=== PATIENT | female | born 1960 | race Caucasian/White ===

== ENCOUNTER 2018-08-09 05:22 | Observation (INO) | payer BC ==
[2018-08-07 14:46] LABS: BASOPHILS # (AUTO) 0.1 (0.0-0.1); BASOPHILS % 0.8 % (0.0-1.0); EOSINOPHILS # (AUTO) 0.3 (0.0-0.4); EOSINOPHILS % 4.2 % (0.0-6.0); HEMATOCRIT 43.4 % (34.2-44.1); HEMOGLOBIN 14.4 g/dL (12.0-16.0); LYMPHOCYTES # (AUTO) 2.7 (1.0-3.2); LYMPHOCYTES % 43.7 % (18.0-39.1); MEAN CORPUSCULAR HEMOGLOBIN 30.2 pg (28-32); MEAN CORPUSCULAR HGB CONC 33.2 g/dL (31-35); MONOCYTES # (AUTO) 0.4 (0.2-0.8); MONOCYTES % 6.3 % (4.4-11.3); NEUTROPHILS # (AUTO) 2.8 (2.1-6.9); NEUTROPHILS % 44.8 % (38.7-80.0); PLATELET COUNT 259 x10e3/uL (140-360); RED BLOOD COUNT 4.77 x10e6/uL (3.6-5.1); RED CELL DISTRIBUTION WIDTH 13.4 % (11.7-14.4)
[2018-08-07 14:56] LABS: INR 0.82; PROTHROMBIN TIME 12.1 seconds (11.9-14.5)
[2018-08-07 14:57] LABS: PARTIAL THROMBOPLASTIN TIME 33.1 seconds (23.8-35.5)
[2018-08-07 15:01] LABS: ANION GAP 13.3 mmol/L (8-16); BLOOD UREA NITROGEN 15 mg/dL (7-26); BUN/CREATININE RATIO 23 (6-25); CALCIUM 9.2 mg/dL (8.4-10.2); CARBON DIOXIDE 23 mmol/L (22-29); CHLORIDE 106 mmol/L (98-107); CREATININE, SERUM 0.66 mg/dL (0.57-1.11); EST GLOMERULAR FILTRATION RATE > 60 ML/MIN (60-); GLUCOSE 91 mg/dL (74-118); POTASSIUM 4.3 mmol/L (3.5-5.1); SODIUM 138 mmol/L (136-145)
--- NOTE | 2018-08-07 15:16 | Diagnostic Imaging Report ---
EXAMINATION: PA and lateral views of the chest. COMPARISON: None CLINICAL HISTORY: Preadmitted for neurosurgical procedure DISCUSSION: Lungs are well-inflated. No focal airspace consolidation, pleural effusion, or pneumothorax. Age-indeterminate mild anterior compression deformity of a midthoracic vertebral body. No acute osseous abnormalities. Cardiomediastinal contour is notable for mild tortuosity of the thoracic aorta. Normal heart size. No overt pulmonary edema. IMPRESSION: No acute cardiopulmonary abnormality. Mild age-indeterminate anterior compression deformity of a midthoracic vertebral body. Point tenderness over this region of the spine would suggest relative acuity. Signed by: Dr. Wilman Milan M.D. on 08/07/2018 3:13 PM
[~2018-08-09] VITALS: Ht 152.4 cm; Wt 94.3 kg
[~2018-08-09 05:22] MED LIST: ALBUMIN; NORCO 10-325 T1 EACH; SOMA350 MG PO; XANAX2 MG
--- OUTSIDE RECORDS SUMMARY | 2018-08-09 05:24 | XMS REPORT ---
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 Allergies, Adverse Reactions, Alerts This patient has no known allergies or adverse reactions. Medications This patient has no known medications. Results Test Description Test Time Test Comments Text Results Atomic Results Result Comments CHEST 2 VIEWS 2018-08-07 15:11:00 [facility] [address] [address] Patient Name: GIAN WAYNE MR #: [id number] : 1960 Age/Sex: 58/F Req #: [id number] [facility] Physician: Ordered by: GIANCARLO CHU MD Report #: [id number] Location: OR Room/Bed: Procedure: [id number] DX/CHEST 2 VIEWS Exam Date: 08/07/18 Exam Time: 1425 REPORT STATUS: Signed EXAMINATION: PA and lateral views of the chest. COMPARISON: None CLINICAL HISTORY: Preadmitted for neurosurgical procedure DISCUSSION: Lungs are well-inflated. No focal airspace consolidation, pleural effusion, or pneumothorax. Age-indeterminate mild anterior compression deformity of a midthoracic vertebral body. No acute osseous abnormalities. Cardiomediastinal contour is notable for mild tortuosity of the thoracic aorta. Normal heart size. No overt pulmonary edema. IMPRESSION: No acute cardiopulmonary abnormality. Mild age- indeterminate anterior compression deformity of a midthoracic vertebral body. Point tenderness over this region of the spine would suggest relative acuity. Signed by: Dr. Virgilio Manning M.D. on 08/07/2018 3:13 PM Dictated By: VIRGILIO MANNING MD [id number] Transcribed By: PAULO on 08/07/18 [id number] COPY TO: GIANCARLO CHU MD
[2018-08-09] MEDS ORDERED: CEFAZOLIN SOD 2 GM/D5W 50ML 50 ML IV ONE (06:17)
[2018-08-09] MEDS ORDERED: THROMBIN FOR SOLN 5,000 UNIT VIAL ONE (06:35)
[2018-08-09] MEDS ORDERED: BUPIVACAINE 0.5%/EPI 30 ML SDV INJ ONE (06:35)
[2018-08-09] MEDS ORDERED: GELATIN SPONGE 12-7MM ONE (06:36)
[2018-08-09] MEDS ORDERED: BACITRACIN 50,000 UNIT VIAL ONE (06:37)
[2018-08-09] MEDS ORDERED: AMBIEN10 MG PO (06:39)
[2018-08-09] MEDS ORDERED: LIDOCAINE HCL (LTA) 4 ML SOLN ONE (06:58)
[2018-08-09] MEDS ORDERED: ACETAMINOPHEN 1000 MG/100 ML 100 ML IV ONE ×2 (06:58)
[2018-08-09] MEDS: LACTATED RINGER'S 1,000 ML IV SCH ×3 (09:03→23:43)
[2018-08-09] MEDS ORDERED: PROMETHAZINE HCL (IM) 25 MG/ML VIAL IM PRN (09:15)
[2018-08-09] MEDS ORDERED: ALPRAZOLAM 1 MG TAB PO PRN (09:15)
[2018-08-09] MEDS ORDERED: ZOLPIDEM TARTRATE 10 MG TAB PO PRN (09:15)
[2018-08-09] MEDS ORDERED: ZOLPIDEM TARTRATE 5 MG TAB PO PRN (09:15)
[2018-08-09] MEDS ORDERED: ACETAMINOPHEN 325 MG TAB PO PRN (09:15)
[2018-08-09] MEDS ORDERED: MAGNESIUM/ALUMINUM/SIMETHICONE 30 ML UDC PO PRN (09:15)
[2018-08-09] MEDS ORDERED: CEPACOL SORE THROAT LOZENGES PO PRN (09:15)
[2018-08-09] MEDS ORDERED: MIDAZOLAM HCL 2 MG/2 ML VIAL ONE ×2 (09:20→18:03)
[2018-08-09] MEDS ORDERED: FENTANYL CITRATE/PF 100MCG/2 ML INJ ONE ×2 (09:31→18:03)
[2018-08-09] MEDS ORDERED: HYDROMORPHONE 2MG/ML 2 MG/ML ML ONE (09:43)
[2018-08-09 10:29] VITALS: BP 115/55
[2018-08-09] MEDS: OXYCODONE/ACETAMINOPHEN 5-325 1 EACH TABLET PO PRN ×2 (10:43→16:55)
[2018-08-09] MEDS: CARISOPRODOL 350 MG TAB PO PRN ×2 (10:43→16:55)
[2018-08-09 11:00] VITALS: BP 115/55
[2018-08-09 11:03] VITALS: BP 115/55
--- NOTE | 2018-08-09 12:18 | Operative Report ---
DATE OF PROCEDURE: August 09, 2018 PREOPERATIVE DIAGNOSIS: Left L4-L5 lateral recess stenosis with radiculopathy, M48.062. POSTOPERATIVE DIAGNOSIS: Left L4-L5 lateral recess stenosis with radiculopathy, M48.062. PROCEDURE: Left L4-L5 laminotomy, medial facetectomy and microsurgical lateral recess decompression, [address]. ANESTHESIA: General. INDICATIONS: Patient is a 58-year-old woman who presents with left L4-5 lateral recess stenosis due to facet and ligamentous hypertrophy associated with compression of the left L5 nerve roots. She has a left L5 radiculopathy. She was taken to the operating room for microsurgical decompression without fusion. PROCEDURE: After the induction of general anesthesia, the patient was placed on the operating table in prone position over a Justin frame. The lumbar region was prepped and draped in sterile fashion. A preoperative x-ray was obtained. A small midline incision was created. Lumbar fascia was opened left of midline and a subperiosteal dissection was carried out to expose the L4 and L5 laminae and the medial aspect of the left L4-L5 facet joint. A second x-ray confirmed correct localization. The operating microscope was brought in. A high-speed drill equipped with veronica bur was used to drill the inferior aspect of the lamina of L4 and the superior aspect of lamina of L5 and the medial aspect of the L4-L5 hypertrophic facet joint on the left side. The markedly hypertrophic ligamentum flavum was then carefully resected, and the dura and L5 nerve root were fully exposed and decompressed. A diskectomy was not performed. Meticulous hemostasis was secured. The lumbar fascia was closed with 0 Vicryl sutures. Subcutaneous layer was closed with 2-0 Vicryl sutures. The skin was closed with maile. A dressing was applied. The patient was awakened, extubated, and taken to post anesthesia care unit in stable condition. No intraoperative complications were encountered. Estimated blood loss 10 mL. Job#: [id number] MARLEN
[2018-08-09] MEDS: HYDROMORPHONE 2MG/ML 2 MG/ML ML IV PRN ×2 (13:41→20:41)
[2018-08-09] MEDS: CEFAZOLIN SOD 1 GM/D5W 50ML 50 ML IV SCH ×2 (13:41→20:40)
[2018-08-09 15:54] VITALS: BP 109/53
[2018-08-09] MEDS ORDERED: SEVOFLURANE INHAL SOLN 250 ML PEN BTL ONE (18:03)
[2018-08-09] MEDS ORDERED: EPHEDRINE SULFATE INJ 50 MG/10 ML SYR ONE (18:03)
[2018-08-09] MEDS ORDERED: ONDANSETRON HCL INJ 2 MG/ML VIAL ONE (18:03)
[2018-08-09] MEDS ORDERED: PROPOFOL IV EMULSION 10 MG/ML 20 ML VIAL ONE (18:03)
[2018-08-09] MEDS ORDERED: GLYCOPYRROLATE INJ 1MG/ 5 ML SYR ONE (18:03)
[2018-08-09] MEDS ORDERED: NEOSTIGMINE 5 MG/5ML SYR ONE (18:03)
[2018-08-09] MEDS ORDERED: DEXAMETHASONE SOD PHOS INJ 4 MG/ML VIAL ONE (18:03)
[2018-08-09] MEDS ORDERED: ROCURONIUM BROMIDE 10 MG/ML 5ML VIAL ONE (18:03)
[2018-08-09] MEDS ORDERED: LIDOCAINE HCL 2% LOCAL INJ 5 ML SDV VIAL INJ ONE (18:03)
[2018-08-09] MEDS: ONDANSETRON HCL INJ 2 MG/ML VIAL IV PRN (20:41)
[2018-08-09 21:00] VITALS: BP 115/67
[2018-08-10] VITALS: BP 141/65
[2018-08-10] MEDS: OXYCODONE/ACETAMINOPHEN 5-325 1 EACH TABLET PO PRN ×3 (00:09→09:35)
[2018-08-10] MEDS: CARISOPRODOL 350 MG TAB PO PRN ×3 (00:10→09:35)
[2018-08-10 00:54] VITALS: BP 141/65
[2018-08-10] MEDS: HYDROMORPHONE 2MG/ML 2 MG/ML ML IV PRN ×2 (03:10→07:50)
[2018-08-10] MEDS: ONDANSETRON HCL INJ 2 MG/ML VIAL IV PRN ×2 (03:10→08:07)
[2018-08-10 04:45] VITALS: BP 113/64
[2018-08-10] MEDS: CEFAZOLIN SOD 1 GM/D5W 50ML 50 ML IV SCH (05:03)
[2018-08-10] MEDS: LACTATED RINGER'S 1,000 ML IV SCH (05:06)
[2018-08-10 08:39] VITALS: BP 112/59
[2018-08-10] MEDS ORDERED: NORCO 7.5-3251 EACH PO (09:19)
== END 2018-08-10 10:08 | disposition home or self-care (01) ==
LOC: OR 05:22 → PACU V 09:05 → IMCU 10:26
PROVIDERS: ADMIT Neurological Surgery; ATTEND Neurological Surgery
DX: M48.062 Spinal stenosis, lumbar region with neurogenic claudication (principal); F41.9 Anxiety disorder, unspecified; Z01.810 Encounter for preprocedural cardiovascular examination; Z01.812 Encounter for preprocedural laboratory examination; Z01.811 Encounter for preprocedural respiratory examination
CPT/HCPCS: 36415; 63047; 71046; 72020; 80048; 85025; 85610; 85730; 86850 ×2; 86900 ×2; 88304; 93005; G0378 ×2; J0131; J0690 ×3; J1100; J1170 ×2; J2001; J2250; J2405 ×2; J2704; J3490; J7120 ×2

== ENCOUNTER 2019-08-13 21:20 | Emergency (ER) | payer BC ==
[~2019-08-13] VITALS: Ht 152.4 cm; Wt 94.3 kg
[~2019-08-13 21:20] MED LIST changes: +AMBIEN10 MG PO; +NORCO 7.5-3251 EACH PO
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
[2019-08-13] MEDS ORDERED: HYDROCODONE/APAP 10MG-325MG TAB PO ONE (23:30)
[2019-08-13] MEDS ORDERED: HYDROCODONE/APAP 10MG-325MG TAB ONE (23:46)
== END 2019-08-13 23:52 | disposition home or self-care (01) ==
LOC: ER 21:20
DX: S00.81XA Abrasion of other part of head, initial encounter (principal); S16.1XXA Strain of muscle, fascia and tendon at neck level, initial encounter; S20.219A Contusion of unspecified front wall of thorax, initial encounter; S60.812A Abrasion of left wrist, initial encounter; S60.211A Contusion of right wrist, initial encounter; V43.52XA Car driver injured in collision with other type car in traffic accident, initial encounter; Y92.488 Other paved roadways as the place of occurrence of the external cause; F41.9 Anxiety disorder, unspecified
CPT/HCPCS: 70450; 70486; 71046; 72125; 99283

== ENCOUNTER 2020-12-14 15:36 | Inpatient (IN) | payer BC ==
[~2020-12-14] VITALS: Ht 152.4 cm; Wt 67.1 kg
[2020-12-14 16:03] LABS: BASOPHILS # (AUTO) 0.1 (0.0-0.1); EOSINOPHILS # (AUTO) 0.3 (0.0-0.4); EOSINOPHILS % 3.9 % (0.0-6.0); HEMATOCRIT 40.2 % (34.2-44.1); HEMOGLOBIN 13.2 g/dL (12.0-16.0); LYMPHOCYTES % 43.8 % (18.0-39.1); MEAN CORPUSCULAR HEMOGLOBIN 29.4 pg (28-32); MEAN CORPUSCULAR HGB CONC 32.8 g/dL (31-35); MEAN CORPUSCULAR VOLUME 89.5 fL (81-99); MONOCYTES # (AUTO) 0.4 (0.2-0.8); MONOCYTES % 5.8 % (4.4-11.3); NEUTROPHILS # (AUTO) 3.1 (2.1-6.9); NEUTROPHILS % 45.4 % (38.7-80.0); PLATELET COUNT 271 x10e3/uL (140-360); RED BLOOD COUNT 4.49 x10e6/uL (3.6-5.1)
[2020-12-14 16:25] LABS: ALANINE AMINOTRANSFERASE 10 IU/L (0-55); ALBUMIN 3.2 g/dL (3.5-5.0); ALBUMIN/GLOBULIN RATIO 0.8 (0.8-2.0); ALKALINE PHOSPHATASE 79 IU/L (40-150); ANION GAP 15.4 mmol/L (8-16); BLOOD UREA NITROGEN 9 mg/dL (7-26); BUN/CREATININE RATIO 15 (6-25); CALCIUM 8.4 mg/dL (8.4-10.2); CARBON DIOXIDE 22 mmol/L (22-29); CHLORIDE 107 mmol/L (98-107); CREATININE, SERUM 0.61 mg/dL (0.57-1.11); EST GLOMERULAR FILTRATION RATE > 60 ML/MIN (60-); GLUCOSE 95 mg/dL (74-118); POTASSIUM 4.4 mmol/L (3.5-5.1); SODIUM 140 mmol/L (136-145)
[2020-12-14 18:01] VITALS: BP 113/58
[2020-12-14 18:04] VITALS: BP 113/58
[2020-12-14] MEDS ORDERED: CELEXA20 MG PO (18:17)
[2020-12-14 20:00] VITALS: BP 99/60
[2020-12-14] MEDS: SODIUM CHLORIDE 0.9% 1000ML 1,000 ML IV SCH (21:05)
[2020-12-14] MEDS: CELECOXIB 100 MG CAP PO SCH (21:05)
[2020-12-14] MEDS: GABAPENTIN 100 MG CAP PO SCH (21:05)
[2020-12-14] MEDS: CEFTRIAXONE SOD 1 GM in SODIUM CHLORIDE 0.9% 50ML 50 ML IV SCH (23:56)
[2020-12-15] VITALS (8 sets, daily range): BP systolic 99–113; BP diastolic 57–65
[2020-12-15] MEDS: ALBUTEROL SULF 0.083% NEB SOLN 3 ML NEB NEB SCH ×5 (00:58→19:35)
[2020-12-15 05:08] LABS: BASOPHILS % 0.7 % (0.0-1.0); EOSINOPHILS # (AUTO) 0.3 (0.0-0.4); EOSINOPHILS % 5.9 % (0.0-6.0); HEMOGLOBIN 12.1 g/dL (12.0-16.0); LYMPHOCYTES # (AUTO) 3.3 (1.0-3.2); LYMPHOCYTES % 59.7 % (18.0-39.1); MEAN CORPUSCULAR HEMOGLOBIN 28.9 pg (28-32); MEAN CORPUSCULAR HGB CONC 32.7 g/dL (31-35); MEAN CORPUSCULAR VOLUME 88.5 fL (81-99); MONOCYTES # (AUTO) 0.3 (0.2-0.8); NEUTROPHILS # (AUTO) 1.6 (2.1-6.9); NEUTROPHILS % 28.5 % (38.7-80.0); PLATELET COUNT 264 x10e3/uL (140-360); RED BLOOD COUNT 4.18 x10e6/uL (3.6-5.1); RED CELL DISTRIBUTION WIDTH 12.9 % (11.7-14.4)
[2020-12-15 05:40] LABS: ANION GAP 9.5 mmol/L (8-16); BLOOD UREA NITROGEN 8 mg/dL (7-26); BUN/CREATININE RATIO 14 (6-25); CALCIUM 8.1 mg/dL (8.4-10.2); CARBON DIOXIDE 24 mmol/L (22-29); CHLORIDE 110 mmol/L (98-107); CREATININE, SERUM 0.56 mg/dL (0.57-1.11); EST GLOMERULAR FILTRATION RATE > 60 ML/MIN (60-); GLUCOSE 85 mg/dL (74-118); POTASSIUM 3.5 mmol/L (3.5-5.1); SODIUM 140 mmol/L (136-145)
[2020-12-15] MEDS: SODIUM CHLORIDE 0.9% 1000ML 1,000 ML IV SCH ×2 (07:10→22:28)
[2020-12-15] MEDS: GABAPENTIN 100 MG CAP PO SCH ×3 (07:51→20:34)
[2020-12-15] MEDS: CELECOXIB 100 MG CAP PO SCH ×2 (07:51→15:29)
[2020-12-15 08:07] LABS: COLOR,URINE YELLOW (YELLOW); KETONES,URINE NEGATIVE (NEGATIVE); LEUKOCYTE ESTERASE ,URINE NEGATIVE (NEGATIVE); NITRITE,URINE NEGATIVE (NEGATIVE); PROTEIN,URINE DIPSTICK NEGATIVE (NEGATIVE); URINE UROBILINOGEN 1 mg/dL (0.2 - 1)
[2020-12-15 08:08] LABS: CLARITY,URINE HAZY (CLEAR)
[2020-12-15 08:35] LABS: BACTERIA,URINE FEW /HPF; CALCIUM OXALATE CRYSTALS,UR FEW (FEW); EPITHELIAL CELLS,URINE FEW /LPF; RBC,URINE 0-5 /HPF (0-5); WBC,URINE (MAN) 0-5 /HPF (0-5)
[2020-12-15] MEDS ORDERED: ENOXAPARIN SOD INJ 40 MG/0.4 ML SYR SC SCH (17:00)
[2020-12-15] MEDS: CEFTRIAXONE SOD 1 GM in SODIUM CHLORIDE 0.9% 50ML 50 ML IV SCH (22:00)
[2020-12-16] MEDS: ALBUTEROL SULF 0.083% NEB SOLN 3 ML NEB NEB SCH ×2 (01:15→06:30)
[2020-12-16] MEDS: SODIUM CHLORIDE 0.9% 1000ML 1,000 ML IV SCH ×2 (02:30→08:16)
[2020-12-16] MEDS: GABAPENTIN 100 MG CAP PO SCH (08:16)
[2020-12-16] MEDS: CELECOXIB 100 MG CAP PO SCH (08:16)
[2020-12-16 08:20] VITALS: BP 122/68
[2020-12-16 08:54] VITALS: BP 122/68
[2020-12-16 11:50] VITALS: BP 133/74
== END 2020-12-16 13:45 | disposition home or self-care (01) | DRG 310 ==
LOC: ER 16:31 → ERHOLD 16:44 → MED/SURG2 18:03 → OBSVTOIN 21:41
PROVIDERS: ADMIT Internal Medicine; ATTEND Internal Medicine
DX: R00.1 Bradycardia, unspecified (principal); Z20.822 Contact with and (suspected) exposure to COVID-19; Z74.09 Other reduced mobility; G89.4 Chronic pain syndrome; R41.82 Altered mental status, unspecified; T40.2X5A Adverse effect of other opioids, initial encounter; M19.90 Unspecified osteoarthritis, unspecified site; M47.9 Spondylosis, unspecified; F32.9 Major depressive disorder, single episode, unspecified; F41.9 Anxiety disorder, unspecified
CPT/HCPCS: 36415; 70450; 80048; 80053; 81001; 82607; 82746; 84443; 84484; 85025; 87086; 93005; 93306; 93880; 94640; 96361; 97139; 99251; 99284; J0696; J1650; J7030; U0002